=== PATIENT | female | born 1970 | race Hispanic/Latino ===

== ENCOUNTER 2020-04-05 17:12 | Inpatient (IN) | payer SELFPAY ==
[~2020-04-05] VITALS: Ht 167.6 cm; Wt 70.8 kg
[2020-04-05 18:03] LABS: BASOPHILS # (AUTO) 0.1 (0.0-0.1); BASOPHILS % 0.6 % (0.0-1.0); EOSINOPHILS # (AUTO) 0.2 (0.0-0.4); HEMATOCRIT 36.5 % (34.2-44.1); HEMOGLOBIN 12.2 g/dL (12.0-16.0); LYMPHOCYTES # (AUTO) 2.3 (1.0-3.2); LYMPHOCYTES % 29.6 % (18.0-39.1); MEAN CORPUSCULAR HEMOGLOBIN 28.2 pg (28-32); MEAN CORPUSCULAR HGB CONC 33.4 g/dL (31-35); MEAN CORPUSCULAR VOLUME 84.3 fL (81-99); MONOCYTES % 12.3 % (4.4-11.3); NEUTROPHILS # (AUTO) 4.4 (2.1-6.9); NEUTROPHILS % 55.2 % (38.7-80.0); PLATELET COUNT 203 x10e3/uL (140-360); RED BLOOD COUNT 4.33 x10e6/uL (3.6-5.1); RED CELL DISTRIBUTION WIDTH 16.8 % (11.7-14.4)
[2020-04-05 18:09] LABS: INR 1.31; PROTHROMBIN TIME 16.9 seconds (11.9-14.5)
[2020-04-05 18:10] LABS: PARTIAL THROMBOPLASTIN TIME 36.8 seconds (23.8-35.5)
[2020-04-05] MEDS ORDERED: NITROGLYCERIN 2% OINT 1 GM PKT TOP ONE (18:15)
[2020-04-05 18:18] LABS: ALANINE AMINOTRANSFERASE 21 IU/L (0-55); ALBUMIN 3.1 g/dL (3.5-5.0); ALBUMIN/GLOBULIN RATIO 0.7 (0.8-2.0); ALKALINE PHOSPHATASE 232 IU/L (40-150); ANION GAP 13.9 mmol/L (8-16); BLOOD UREA NITROGEN 9 mg/dL (7-26); BUN/CREATININE RATIO 16 (6-25); CALCIUM 9.2 mg/dL (8.4-10.2); CARBON DIOXIDE 22 mmol/L (22-29); CHLORIDE 107 mmol/L (98-107); CREATINE KINASE 44 IU/L (29-168); CREATININE, SERUM 0.58 mg/dL (0.57-1.11); EST GLOMERULAR FILTRATION RATE > 60 ML/MIN (60-); GLUCOSE 90 mg/dL (74-118); MAGNESIUM 1.7 MG/DL (1.3-2.1); POTASSIUM 3.9 mmol/L (3.5-5.1); SODIUM 139 mmol/L (136-145)
--- NOTE | 2020-04-05 18:53 | Diagnostic Imaging Report ---
EXAMINATION: CHEST SINGLE (PORTABLE) INDICATION: Shortness of breath. CHF. COMPARISON: None FINDINGS: TUBES and LINES: None. LUNGS: Lungs are mildly hyperinflated. Bilateral pulmonary venous congestion. There is perihilar interstitial opacities, consistent with interstitial edema. PLEURA: No pleural effusion or pneumothorax. HEART AND MEDIASTINUM: Cardiac size is moderately enlarged. BONES AND SOFT TISSUES: No acute osseous lesion. Soft tissues are unremarkable. UPPER ABDOMEN: No free air under the diaphragm. IMPRESSION: Decompensated CHF. Bilateral pulmonary venous congestion and interstitial edema. Signed by: Dr. Ayad Zayas M.D. on 04/05/2020 6:50 PM
[2020-04-05] MEDS ORDERED: METRONIDAZOLE 500MG/NS 100ML 100 ML IV ONE (19:15)
[2020-04-05] MEDS ORDERED: PIPER-TAZ 3.375 GM 50 ML IV ONE (19:15)
--- NOTE | 2020-04-05 19:18 | Emergency Department Note ---
History of Present Illnes History of Present Illness Chief Complaint: Chest Pain History of Present Illness This is a 49 year old female arrived to the ED with complaints of shortness of breath for several months now worsening with bilateral leg edema that is spreading up to her thighs. Chief Complaint Comment Patient in from Dr. Leung office with reports of difficulty breathing that started about 8 months ago. Patient reports that she finally made an appointment with Dr. Leung and saw him today where they did an EKG that showed a rapid heart rate and she was told to come to the ER for a chest xray. Patient denies chest pain. Historian: Patient Arrival Mode: Car Onset (how long ago): week(s) Severity: mild, moderate Onset quality: gradual Duration (how long): month(s) Timing of current episode: constant Progression: worsening Chronicity: new Past Medical/Family History Physician Review I have reviewed the patient's past medical and family history. Any updates have been documented here. Past Medical History Recent Fever: No Clinical Suspicion of Infectio: No New/Unexplained Change in Ment: No Past Medical History: Hypertension, CHF, Anxiety Past Surgical History: None Social History Smoking Cessation: Never Smoker Counseling Performed: No Alcohol Use: None Any Illegal Drug Use: No Physically hurt or threatened: No Other Any Pre-Existing Lines (PICC,: No Review of Systems Review of Systems Constitutional: Reports no symptoms EENTM: Reports no symptoms Cardiovascular: Reports no symptoms Respiratory: Reports as per HPI, Reports dyspnea, Reports dyspnea on exertion; Denies cough Gastrointestinal: Reports no symptoms Genitourinary: Reports no symptoms Musculoskeletal: Reports no symptoms Integumentary: Reports no symptoms Neurological: Reports no symptoms Psychological: Reports no symptoms Endocrine: Reports no symptoms Hematological/Lymphatic: Reports no symptoms Physical Exam Related Data Allergies: Coded Allergies: No Known Allergies (Unverified , 04/05/20) Triage Vital Signs Vital Signs Date Time Temp Pulse Resp B/P (MAP) Pulse Ox O2 Delivery O2 Flow Rate FiO2 04/05/20 17:28 98.3 124 18 182/99 100 Room Air Physical Exam CONSTITUTIONAL HENT EYES NECK PULMONARY CARDIOVASCULAR GASTROINTESTINAL GENITOURINARY SKIN MUSCULOSKELETAL NEUROLOGICAL PSYCHOLOGICAL Results Laboratory Result Diagram: 04/05/20 1739 04/05/20 1739 Laboratory Laboratory Tests Test 04/05/20 17:57 04/05/20 17:39 White Blood Count 7.90 x10e3/uL (4.8-10.8) Red Blood Count 4.33 x10e6/uL (3.6-5.1) Hemoglobin 12.2 g/dL (12.0-16.0) Hematocrit 36.5 % (34.2-44.1) Mean Corpuscular Volume 84.3 fL (81-99) Mean Corpuscular Hemoglobin 28.2 pg (28-32) Mean Corpuscular Hemoglobin Concent 33.4 g/dL (31-35) Red Cell Distribution Width 16.8 % (11.7-14.4) Platelet Count 203 x10e3/uL (140-360) Neutrophils (%) (Auto) 55.2 % (38.7-80.0) Lymphocytes (%) (Auto) 29.6 % (18.0-39.1) Monocytes (%) (Auto) 12.3 % (4.4-11.3) Eosinophils (%) (Auto) 2.0 % (0.0-6.0) Basophils (%) (Auto) 0.6 % (0.0-1.0) Neutrophils # (Auto) 4.4 (2.1-6.9) Lymphocytes # (Auto) 2.3 (1.0-3.2) Monocytes # (Auto) 1.0 (0.2-0.8) Eosinophils # (Auto) 0.2 (0.0-0.4) Basophils # (Auto) 0.1 (0.0-0.1) Absolute Immature Granulocyte (auto 0.02 x10e3/uL (0-0.1) Prothrombin Time 16.9 seconds (11.9-14.5) Prothromb Time International Ratio 1.31 Activated Partial Thromboplast Time 36.8 seconds (23.8-35.5) D-Dimer Quantitative (PE/DVT) 1.61 ug/mLFEU (0.00-0.45) Sodium Level 139 mmol/L (136-145) Potassium Level 3.9 mmol/L (3.5-5.1) Chloride Level 107 mmol/L (98-107) Carbon Dioxide Level 22 mmol/L (22-29) Anion Gap 13.9 mmol/L (8-16) Blood Urea Nitrogen 9 mg/dL (7-26) Creatinine 0.58 mg/dL (0.57-1.11) Estimat Glomerular Filtration Rate > 60 ML/MIN (60-) BUN/Creatinine Ratio 16 (6-25) Glucose Level 90 mg/dL (74-118) Calcium Level 9.2 mg/dL (8.4-10.2) Magnesium Level 1.7 MG/DL (1.3-2.1) Total Bilirubin 3.3 mg/dL (0.2-1.2) Aspartate Amino Transf (AST/SGOT) 43 IU/L (5-34) Alanine Aminotransferase (ALT/SGPT) 21 IU/L (0-55) Alkaline Phosphatase 232 IU/L (40-150) Creatine Kinase 44 IU/L (29-168) Creatine Kinase MB 2.30 ng/mL (0-5.0) Troponin I 0.035 ng/mL (0-0.300) B-Type Natriuretic Peptide 1255.1 pg/mL (0-100) Total Protein 7.7 g/dL (6.5-8.1) Albumin 3.1 g/dL (3.5-5.0) Globulin 4.6 g/dL (2.3-3.5) Albumin/Globulin Ratio 0.7 (0.8-2.0) Lab results reviewed: Yes Imaging Imaging results reviewed: Yes Impressions IMPRESSION: 1. There is tissue edema suggestive of decompensated CHF. 2. Moderate cardiomegaly and small pericardial effusion. 3. Small right pleural effusion. 4. Mediastinal lymphadenopathy, likely reactive. Signed by: Dr. Ayad Zayas M.D. on 04/05/2020 8:50 PM Critical Care Time Critical care time exclusive o: separately billable procedures Critcal care necessary due to: respiratory failure Critcal care time spent by me: blood dram for specimens, discussion w primary provider, interpret cardiac output measures, evaluation patient response to tx, examination of patient, obtaining hx from patient/surrogate, order/review laboratory studies, order/review radiographic studies, pulse oximetry, re- evaluation of patient condition Assessment & Plan Medical Decision Making MDM Concerns for impending Severe Sepsis @ 1900 noted, given elevated bilirubin. Blood cultures and lactic acid obtained. Lactic acid unremarkable. Patient empirically given [address] abdomen and pelvis unremarkable for any acute intra-abdominal surgical infectious process. 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 BNP:>1255 CXR: IMPRESSION: Decompensated CHF. Bilateral pulmonary venous congestion and interstitial edema. Based on history, exam and findings, presentation most consistent with acute on chronic heart failure. Low suspicion for PNA, ACS, tamponade, aortic dissection. Interventions: Oxygen, Diuresis Reassessment: Symptoms improved in ED with diuresis Disposition (Stable but not significantly improved): Admit to medicine for further monitoring and for improvement of medication regimen to control symptoms. Clinical Impression and Disposition Plan My clinical impression includes: Acute decompensated CHF No diagnosis found. And plan is admit for: -Further monitoring and evaluation is medically necessary -Failure to respond to outpatient treatment -Changes in pt's condition require medical attention -High risk for adverse event impacting life/organs/systems -Impossible to complete diagnostic studies as an outpatient -Signs/symptoms could lead to deterioration of patient -Treatment plan will require frequent clinical modifications -Treatment requires inpatient setting All clinical impressions and diagnoses provided are preliminary ED determinations subject to the inherent limitations of an emergent non-scheduled evaluation and possible lack of comprehensive previous records. All patient care including history taking, review of systems, physical exam, nursing notes review, medical decision making, clinical course management in the emergency department, clinical impression, disposition and plan formulation was performed on the date of service. This note was created using a voice-recognition transcribing system. Incorrect words or phrases may have been missed during proofreading. Please interpret accordingly. Assessment & Plan Final Impression: (1) CHF (congestive heart failure) Depart Disposition: ADMITTED Last Vital Signs Date Time Temp Pulse Resp B/P (MAP) Pulse Ox O2 Delivery O2 Flow Rate FiO2 04/05/20 18:29 184/116 04/05/20 18:03 98.1 122 18 97 Room Air Medications in the ED Nitroglycerin 1 gm ONCE ONCE TOP Last administered on 04/05/20at 18:29; Admin Dose 1 GM; Start 04/05/20 at 18:15; Stop 04/05/20 at 18:16; Status DC Piperacillin Sod/ Tazobactam Sod 50 ml @ 50 mls/hr NOW ONCE IV ; Start 04/05/20 at 19:15; Stop 04/05/20 at 20:14 Metronidazole/ Sodium Chloride 100 ml @ 100 mls/hr NOW ONCE IV ; Start 04/05/20 at 19:15; Stop 04/05/20 at 20:14 ANKITA MEDNIA, Apr 05, 2020 19:18
[2020-04-05] MEDS ORDERED: IOPAMIDOL 370 MG/ML 200 ML INFUS..BTL INJ ONE (19:34)
[2020-04-05] MEDS ORDERED: SODIUM CHLORIDE 0.9% 50ML 50 ML ONE (19:34)
[2020-04-05 19:36] LABS: CLARITY,URINE SL CLOUDY (CLEAR); COLOR,URINE YELLOW (YELLOW)
[2020-04-05 19:37] LABS: AMPHETAMINES SCREEN,URINE NEGATIVE (NEGATIVE); BENZODIAZEPINES SCREEN,URINE NEGATIVE (NEGATIVE); BILIRUBIN,URINE NEGATIVE (NEGATIVE); KETONES,URINE NEGATIVE (NEGATIVE); LEUKOCYTE ESTERASE ,URINE NEGATIVE (NEGATIVE); NITRITE,URINE NEGATIVE (NEGATIVE); PHENCYCLIDINE SCREEN,URINE NEGATIVE (NEGATIVE); PROTEIN,URINE DIPSTICK NEGATIVE (NEGATIVE); URINE UROBILINOGEN 0.2 mg/dL (0.2 - 1)
[2020-04-05 19:47] LABS: RBC,URINE 0-5 /HPF (0-5)
[2020-04-05 19:48] LABS: BACTERIA,URINE FEW /HPF; EPITHELIAL CELLS,URINE FEW /LPF
[2020-04-05] MEDS ORDERED: FUROSEMIDE INJ 10 MG/ML 4 ML VIAL IV ONE (20:00)
--- OUTSIDE RECORDS SUMMARY | 2020-04-05 20:47 | XMS REPORT | Continuity of Care Document ---
Author Author [facility] t Organization [facility] Address [address] [place] [phone] Phone Unavailable Care Team Providers Care Glove Parts Inspector Name Role Phone Christine BOWDEN Attphys Unavailable Problems This patient has no known problems. Allergies, Adverse Reactions, Alerts This patient has no known allergies or adverse reactions. Medications This patient has no known medications. Procedures This patient has no known procedures. Results Test Description Test Time Test Comments Results Result Comments Source CHEST SINGLE (PORTABLE) 2020-04-05 18:49:00 [facility]: DEBRA MOSQUEDA : 1970 Sex: F [facility] [address] [place], [place] [address] Patient Name: DEBRA MOSQUEDA MR #: [id number] : 1970 Age/Sex: 49/F Req #: [id number] [facility] Physician: Ordered by: DELFINO BOWDEN MD Report #: [id number] Location: ER Room/Bed: Procedure: [id number] DX/CHEST SINGLE (PORTABLE) Exam Date: 04/05/20 Exam Time: 1814 REPORT STATUS: Signed EXAMINATION: CHEST SINGLE (PORTABLE) INDICATION: Shortness of breath. CHF. COMPARISON: None FINDINGS: TUBES and LINES: None. LUNGS: Lungs are mildly hyperinflated. Bilateral pulmonary venous congestion. There is perihilar interstitial opacities, consistent with interstitial edema. PLEURA: No pleural effusion or pneumothorax. HEART AND MEDIASTINUM: Cardiac size is moderately enlarged. BONES AND SOFT TISSUES: No acute osseous lesion. Soft tissues are unremarkable. UPPER ABDOMEN: No free air under the diaphragm. IMPRESSION: Decompensated CHF. Bilateral pulmonary venous congestion and interstitial edema. Signed by: Dr. Ayad Landrum M.D. on 04/05/2020 6:50 PM Dictated By: JHONATAN LANDRUM MD, MD 49 Transcribed By: DEAN on 04/05/201849 COPY TO: DELFINO BOWDEN MD
--- NOTE | 2020-04-05 20:54 | Diagnostic Imaging Report ---
EXAM: CT Chest, Abdomen and Pelvis WITH contrast INDICATION: Chest pain. Shortness of breath. COMPARISON: None. TECHNIQUE: Chest, abdomen and pelvis were scanned utilizing a multidetector helical scanner from the lung apex to the pubic symphysis before and after administration of IV contrast. Coronal and sagittal reformations were obtained. Chest performed with pulmonary embolism protocol. Routine protocol was performed. Scan was performed when during portal venous phase. IV CONTRAST: 100 cc Isovue-300 ORAL CONTRAST: Water RADIATION DOSE: Total DLP: 958.66 mGy*cm Estimated effective dose: (DLP x 0.015 x size factor) mSv COMPLICATIONS: None FINDINGS: LINES and TUBES: None. LUNGS AND AIRWAYS: Bilateral diffuse interstitial edema. PLEURA: Small right pleural effusion. HEART AND MEDIASTINUM: The thyroid gland is normal. Nodular low-attenuation throughout the anterior mediastinum suggestive of multiple small lymph nodes, possibly reactive. Mild thymic hyperplasia cannot be excluded. The heart is moderately enlarged. There is I small pericardial effusion. Mildly prominent bilateral axillary lymph nodes are nonspecific, possibly reactive. HEPATOBILIARY: Diffuse low-attenuation of the hepatic parenchyma consistent with steatosis. No focal hepatic lesions. No biliary ductal dilation. GALLBLADDER: No radio-opaque stones or sludge. No wall thickening. SPLEEN: No splenomegaly. PANCREAS: No focal masses or ductal dilatation. ADRENALS: No adrenal nodules KIDNEYS/URETERS: Kidneys enhance symmetrically. No hydronephrosis. No cystic or solid mass lesions. No stones. GI TRACT: No abnormal distention, wall thickening, or evidence of bowel obstruction. Appendix is not well visualized, however, no evidence of appendicitis. PELVIC ORGANS/BLADDER: An IUD is noted. LYMPH NODES: No lymphadenopathy. VESSELS: Unremarkable. PERITONEUM / RETROPERITONEUM: No free air or fluid. BONES: There are degenerative changes in the lumbar spine. SOFT TISSUES: Unremarkable. IMPRESSION: 1. There is tissue edema suggestive of decompensated CHF. 2. Moderate cardiomegaly and small pericardial effusion. 3. Small right pleural effusion. 4. Mediastinal lymphadenopathy, likely reactive. Signed by: Dr. Ayad Zayas M.D. on 04/05/2020 8:50 PM
[2020-04-05] MEDS ORDERED: SODIUM CHLORIDE FLUSH 10 ML SYR INJ PRN (21:30)
--- OUTSIDE RECORDS SUMMARY | 2020-04-05 21:41 | XMS REPORT | Continuity of Care Document ---
Author Author [facility] t Organization [facility] Address [address] [place] [address] [address] [place] [phone] Phone Unavailable Care Team Providers Care Sr. Pricing Analyst Name Role Phone Yovany MEDINA Unavailable Problems This patient has no known problems. Allergies, Adverse Reactions, Alerts This patient has no known allergies or adverse reactions. Medications This patient has no known medications. Procedures This patient has no known procedures. Results Test Description Test Time Test Comments Results Result Comments Source CT CHEST W 2020-04-05 20:03:00 [facility] CENTER[facility]: DEBRA MOSQUEDA : 1970 Sex: F [facility] [address] [place], [place] [address] Patient Name: DEBRA MOSQUEDA MR #: [id number] : 1970 Age/Sex: 49/F Req #: [id number] [facility] Physician: Ordered by: ANKITA MEDINA DO Report #: [id number] Location: ER Room/Bed: Procedure: [id number] CT/CT CHEST W Exam Date: 04/05/20 Exam Time: 1914 REPORT STATUS: Signed EXAM: CT Chest, Abdomen and Pelvis WITH contrast INDICATION: Chest pain. Shortness of breath. COMPARISON: None. TECHNIQUE: Chest, abdomen and pelvis were scanned utilizing a multidetector helical scanner from the lung apex to the pubic symphysis before and after administration of IV contrast. Coronal and sagittal reformations were obtained. Chest performed with pulmonary embolism protocol. Routine protocol was performed. Scan was performed when during portal venous phase. IV CONTRAST: 100 cc Isovue-300 ORAL CONTRAST: Water RADIATION DOSE: Total DLP: 958.66 mGy*cm Estimated effective dose : (DLP x 0.015 x size factor) mSv COMPLICATIONS: None FINDINGS: LINES and TUBES: None. LUNGS AND AIRWAYS: Bilateral diffuse interstitial edema. PLEURA: Small right pleural effusion. HEART AND MEDIASTINUM: The thyroid gland is normal. Nodular low-attenuation throughout the anterior mediastinum suggestive of multiple small lymph nodes, possibly reactive. Mild thymic hyperplasia cannot be excluded. The heart is moderately enlarged. There is I small pericardial effusion. Mildly prominent bilateral axillary lymph nodes are nonspecific, possibly reactive. HEPATOBILIARY: Diffuse low-attenuation of the hepatic parenchyma consistent with steatosis. No focal hepatic lesions. No biliary ductal dilation. GALLBLADDER: No radio-opaque stones or sludge. No wall thickening. SPLEEN: No splenomegaly. PANCREAS: No focal masses or ductal dilatation. ADRENALS: No adrenal nodules KIDNEYS/URETERS: Kidneys enhance symmetrically. No hydronephrosis. No cystic or solid mass lesions. No stones. GI TRACT: No abnormal distention, wall thickening, or evidence of bowel obstruction. Appendix is not well visualized, however, no evidence of appendicitis. PELVIC ORGANS/BLADDER: An IUD is noted. LYMPH NODES: No lymphadenopathy. VESSELS: Unremarkable. PERITONEUM / RETROPERITONEUM: No free air or fluid. BONES: There are degenerative changes in the lumbar spine. SOFT TISSUES: Unremarkable. IMPRESSION: 1. There is tissue edema suggestive of decompensated CHF. 2. Moderate cardiomegaly and small pericardial effusion. 3. Small right pleural effusion. 4. Mediastinal lymphadenopathy, likely reactive. Signed by: Dr. Ayad Landrum M.D. on 04/05/2020 8:50 PM Dictated By: JHONATAN LANDRUM MD, MD 49 Transcribed By: DEAN on 04/05/202049 COPY TO: ANKITA MEDINA DO CT ABDOMEN/PELVIS W 2020-04-05 20:03:00 [facility] 1970 Sex: F [place] [id number] Patient Name: DEBRA MOSQUEDA MR #: [id number] : 1970 Age/Sex: 49/F Req #: [id number] Adm Physician: Ordered by: ANKITA MEDINA DO Report #: [id number] Location: ER Room/Bed: Procedure: [id number] CT/CT ABDOMEN/PELVIS W Exam Date: 04/05/20 Exam Time: 1914 REPORT STATUS: Signed EXAM: CT Chest, Abdomen and Pelvis WITH contrast INDICATION: Chest pain. Shortness of breath. COMPARISON: None. TECHNIQUE: Chest, abdomen and pelvis were scanned utilizing a multidetector helical scanner from the lung apex to the pubic symphysis before and after administration of IV contrast. Coronal and sagittal reformations were obtained. Chest performed with pulmonary embolism protocol. Routine protocol was performed. Scan was performed when during portal venous phase. IV CONTRAST: 100 cc Isovue-300 ORAL CONTRAST: Water RADIATION DOSE: Total DLP: 958.66 mGy*cm Estimated effective dose: (DLP x 0.015 x size factor) mSv COMPLICATIONS: None FINDINGS: LINES and TUBES: None. LUNGS AND AIRWAYS: Bilateral diffuse interstitial edema. PLEURA: Small right pleural effusion. HEART AND MEDIASTINUM: The thyroid gland is normal. Nodular low-attenuation throughout the anterior mediastinum suggestive of multiple small lymph nodes, possibly reactive. Mild thymic hyperplasia cannot be excluded. The heart is moderately enlarged. There is I small pericardial effusion. Mildly prominent bilateral axillary lymph nodes are nonspecific, possibly reactive. HEPATOBILIARY: Diffuse low-attenuation of the hepatic parenchyma consistent with steatosis. No focal hepatic lesions. No biliary ductal dilation. GALLBLADDER: No radio-opaque stones or sludge. No wall thickening. SPLEEN: No splenomegaly. PANCREAS: No focal masses or ductal dilatation. ADRENALS: No adrenal nodules KIDNEYS/URETERS: Kidneys enhance symmet rically. No hydronephrosis. No cystic or solid mass lesions. No stones. GI TRACT: No abnormal distention, wall thickening, or evidence of bowel obstruction. Appendix is not well visualized, however, no evidence of appendicitis. PELVIC ORGANS/BLADDER: An IUD is noted. LYMPH NODES: No lymphadenopathy. VESSELS: Unremarkable. PERITONEUM / RETROPERITONEUM: No free air or fluid. BONES: There are degenerative changes in the lumbar spine. SOFT TISSUES: Unremarkable. IMPRESSION: 1. There is tissue edema suggestive of decompensated CHF. 2. Moderate cardiomegaly and small pericardial effusion. 3. Small right pleural effusion. 4. Mediastinal lymphadenopathy, likely reactive. Signed by: Dr. Ayad Landrum M.D. on 04/05/2020 8:50 PM Dictated By: JHONATAN LANDRUM MD, MD 49 Transcribed By: DEAN on 04/05/202049 COPY TO: ANKITA MEDINA, CHEST SINGLE (PORTABLE) 2020-04-05 18:49:00 [facility] CENTERName: DEBRA MOSQUEDA : 1970 Sex: F [place] [address] Patient Name: DEBRA MOSQUEDA MR #: [id number] : 1970 Age/Sex: 49/F Req #: [id number] Adm Physician: Ordered by: DELFINO BOWDEN MD Report #: [id number] Location: ER Room/Bed: Procedure: [id number] DX/CHEST SINGLE (PORTABLE) Exam Date: 04/05/20 Exam Time: 1815 REPORT STATUS: Signed EXAMINATION: CHEST SINGLE (PORTABLE) [...]
[2020-04-05 22:10] VITALS: BP 142/85
--- NOTE | 2020-04-05 22:10 | NUR ---
Pt arrived to unit from ER via wheelchair with at side. Pt was taken to room #113. Pt is awake, alert, and oriented. No distress noted. Pt denies pain or discomfort. Vitals are stable. Oriented pt to room and use of call light. Discussed education folder with pt and informed her of teaching channels on the TV provided. Pt requested a sandwich upon admission. Pt appears comfortable. Observed pt while she ambulated to bathroom during admission. Pt is independent and steady on her feet without assistance. Call light within reach. Instructed pt to call when assistance is needed/necessary. Pt verbalized understanding. Denies further questions or concerns at this time.
[2020-04-05] MEDS ORDERED: CITALOPRAM HBR20 MG PO (23:14)
[2020-04-05] MEDS ORDERED: DIOVAN80 MG PO (23:14)
[2020-04-06] VITALS (8 sets, daily range): BP systolic 127–150; BP diastolic 65–85
[2020-04-06 06:02] LABS: CREATINE KINASE MB 1.6 ng/mL (0-5.0)
--- NOTE | 2020-04-06 07:00 | NUR ---
BEDSIDE SHIFT REPORT RECEIVED PT IN STABLE CONDITION, DENIES PAIN AT THIS TIME, R AC 20G NO SS OF INFILTRATION NOTED, NO OTHER CO VOCIED CALL LIGHT IN REACH WILL CONTINUE TO MONITOR
--- NOTE | 2020-04-06 08:32 | Diagnostic Imaging Report ---
Chest, 1 view, 04/06/2020. History: Chest pain, CHF. Comparison: 04/05/2020. Findings: The cardiomediastinal silhouette and pulmonary vasculature are mildly prominent with mild interstitial prominence. There is no focal consolidation or pleural effusion. There are no acute osseous or soft tissue abnormalities. Impression: Mild CHF with interstitial edema, slightly decreased. Signed by: Lee Sifuentes on 04/06/2020 8:29 AM
[2020-04-06] MEDS ORDERED: ACETAMINOPHEN 325 MG TAB PO PRN (09:00)
[2020-04-06] MEDS: FUROSEMIDE INJ 10 MG/ML 4 ML VIAL IV SCH ×2 (09:06→17:22)
[2020-04-06 14:08] LABS: CREATINE KINASE MB 1.6 ng/mL (0-5.0)
--- NOTE | 2020-04-06 16:18 | Consultation ---
DATE OF CONSULTATION: Cardiology Consultation REASON FOR CONSULTATION: Tachycardia, heart failure. HISTORY OF PRESENT ILLNESS: This is a 49-year-old woman with a history of hypertension, who presented to my outpatient clinic yesterday with symptoms of lower extremity swelling, and tachycardia. The patient also reports shortness of breath and atypical chest discomfort. The patient was further admitted for potential heart failure. REVIEW OF SYSTEMS: A 14-point review of system was conducted and is negative except as stated above in the HPI. PAST MEDICAL HISTORY: As stated above in the HPI. PAST SURGICAL HISTORY: None recent. PAST FAMILY HISTORY: Noncontributory to current illness. ALLERGIES: NO KNOWN DRUG ALLERGIES. MEDICATIONS: See medication reconciliation form. PHYSICAL EXAMINATION: VITAL SIGNS: Temperature is 98.3, heart rate is 94, respirations 18, blood pressure is 150/85, ox saturation is 96% on room air. GENERAL: A well appearing, well built, no apparent distress. Alert and oriented x3. HEAD: Normocephalic and atraumatic. EYES: The extraocular muscles are intact. Conjunctivae clear. NECK: No JVD. No bruits. CARDIOVASCULAR: Tachycardia, regular rhythm. No murmurs. LUNGS: Clear to auscultation. ABDOMEN: Soft, nontender, nondistended. EXTREMITIES: Trace edema. VASCULAR: 2+ pulses. SKIN: Warm, dry, and intact. NEUROLOGIC: No focal deficits noted. Cranial nerves grossly intact. PSYCHIATRIC: Normal mood and affect. LABORATORY DATA: Reviewed. Creatinine 0.58, AST is 43, alkaline phosphatase is 232, albumin is 3.1. Troponin negative x2. BNP is 1683. CT of the chest showed no evidence of pulmonary embolism, moderate cardiomegaly, small pericardial effusion. Chest x-ray shows bilateral pulmonary venous congestion and interstitial edema. IMPRESSION: 1. Acute systolic congestive heart failure. 2. Hypertension. 3. Tachycardia. 4. Anxiety. 5. Elevated liver function tests. RECOMMENDATIONS: Check a 2D echocardiogram. Continue intravenous Lasix. We will start low-dose metoprolol. Resume valsartan. Further recommendations to follow. DO ELIAN Vizcarra/SOLO /[id number]
[2020-04-06] MEDS: METOPROLOL TARTRATE 25 MG TAB PO SCH (18:08)
--- NOTE | 2020-04-06 18:45 | NUR ---
History&Physical Chief Complaint - shortness of breath, leg swelling History of Present Illness Ms Whitlock is a 49 yo F with PMH of HTN who is admitted for acute heart failure. Patient was seen in Dr José Miguel Leung' clinic where he was concerned for new onset HF and sent her to ED. This was the first time she was seen in his clinic. She states she has been having symptoms of shortness of breath and lower extremity edema for several months and has been gradually worsening. She also complains of atypical chest discomfort. Never had heart cath, never had WI. CXR in ED with bilateral pulmonary congestion and interstitial edema with enlarged cardiac silhouette. Labwork revealed BNP 1683. Started on lasix and admitted for further work-up. Home Medications - see med reconciliation Review of Systems - positive sxms bolded General: No fever, chills, or fatigue HEENT: Denies visual changes, hearing loss, congestion, rhinorrhea, or bleeding Respiratory: No SOB, cough, or hemoptysis Cardiovascular: No chest pain, palpitations, BENSON, orthopnea, PND, leg edema, or claudication Gastrointestinal: No nausea, vomiting, diarrhea, constipation, or abdominal pain G/U: Denies dysuria, hematuria, incontinence, or discharge Musculoskeletal: No myalgias or arthralgias Neurological: No syncope, seizures, headaches, changes in sensation, or weakness Hematology: No bruising, bleeding, or lymphadenopathy Endocrine: No heat or cold intolerance, hair loss, or weight changes Skin: No rashes, sores, itching, bruising Psychiatric: Denies depression or elevated mood, or anxiety Past Medical History see HPI Past Surgical History None Family History Mother with HTN Social History Does not drink, does not smoke, does not use drugs Allergies NKDA Physical Exam Vitals: Temp: 98.3P: 98BP: 131/65RR: 18SpO2: 98% General Appearance: The patient is alert, oriented and in no acute distress. Appears euvolemic. Skin: Warm and hydrated without any rash. HEENT: Head is normocephalic, atraumatic. Nontender sinuses. Pupils are equal and reactive. The nares are patent. Oropharynx is moist and clear without lesions. Neck: Supple without lymphadenopathy. No JVD. Thyroid NV/EELER Heart / Cardiovascular: tachycardic with regular rhythm. Normal S1 and S2 without S3/S4. No murmurs, rubs or gallops. Peripheral pulses symmetric +2. Respiratory / Chest: No crackles or wheezes are heard. Symmetric breath sounds. Preserved chest expansion. Abdomen: Soft, nontender, nondistended with good bowel sounds heard. No clinical organomegaly. Renal: There is no costovertebral angle tenderness. Extremities: Without cyanosis, clubbing. +trace edema Preserved ROM. Neurological: Gross nonfocal. Patient oriented x 3. Cranial nerves II - XII Grossly intact. DTRs +2. MS: 5/5 globally. Assessment/Plan #Acute systolic congestive heart failure - appears to have reduced EF on my evaluation of echo, pending formal read; BNP and clinical findings = CHF - TSH very low, possible cause of her HF is thyrotoxicosis - Dr Leung consulted, appreciate assistance - plan for [facility] tomorrow - continue valsartan, lasix, aspirin, statin - start low dose metoprolol per Dr Leung #Thyrotoxicosis - new diagnosis, TSH 0.001 - ordered FT4, total T3, TPO, TSI, and thyroid U/S - consulted Dr Milligan, appreciate assistance - will likely need further w/u outpatient pending the above studies I have spent 70 minutes [id number] time with patient, reviewing clinical data, and formulating plan of treatment. Leonel Hamm MD Internal Medicine
--- NOTE | 2020-04-06 19:30 | NUR ---
Received bedsidse shift report from off-going nurse. Pt in restroom. Observed pt ambulate to sit on bed. Pt denies pain or discomfort at this time. Call light within reach. Instructed pt to call for assistance when needed. Pt verbalized understanding and denies further questions or concerns at this time.
[2020-04-06] MEDS ORDERED: ATORVASTATIN 40 MG TAB PO SCH (21:00)
[2020-04-07] VITALS: BP 127/80
[2020-04-07 04:00] VITALS: BP 127/77
[2020-04-07] MEDS: METOPROLOL TARTRATE 25 MG TAB PO SCH (05:12)
[2020-04-07 06:00] LABS: BASOPHILS # (AUTO) 0.1 (0.0-0.1); BASOPHILS % 0.6 % (0.0-1.0); EOSINOPHILS # (AUTO) 0.4 (0.0-0.4); EOSINOPHILS % 5.2 % (0.0-6.0); HEMATOCRIT 39.1 % (34.2-44.1); HEMOGLOBIN 12.8 g/dL (12.0-16.0); LYMPHOCYTES # (AUTO) 2.5 (1.0-3.2); LYMPHOCYTES % 32.2 % (18.0-39.1); MEAN CORPUSCULAR HEMOGLOBIN 28.1 pg (28-32); MEAN CORPUSCULAR HGB CONC 32.7 g/dL (31-35); MEAN CORPUSCULAR VOLUME 85.7 fL (81-99); MONOCYTES % 12.5 % (4.4-11.3); NEUTROPHILS # (AUTO) 3.8 (2.1-6.9); NEUTROPHILS % 49.1 % (38.7-80.0); PLATELET COUNT 233 x10e3/uL (140-360); RED BLOOD COUNT 4.56 x10e6/uL (3.6-5.1); RED CELL DISTRIBUTION WIDTH 16.9 % (11.7-14.4)
[2020-04-07 06:11] LABS: CALCIUM IONIZED 1.2 mmol/L (1.09-1.30)
[2020-04-07 06:23] LABS: ALANINE AMINOTRANSFERASE 21 IU/L (0-55); ALBUMIN 2.9 g/dL (3.5-5.0); ALBUMIN/GLOBULIN RATIO 0.6 (0.8-2.0); ALKALINE PHOSPHATASE 249 IU/L (40-150); ANION GAP 11.9 mmol/L (8-16); BLOOD UREA NITROGEN 12 mg/dL (7-26); BUN/CREATININE RATIO 21 (6-25); CALCIUM 8.8 mg/dL (8.4-10.2); CARBON DIOXIDE 30 mmol/L (22-29); CHLORIDE 103 mmol/L (98-107); CREATININE, SERUM 0.58 mg/dL (0.57-1.11); EST GLOMERULAR FILTRATION RATE > 60 ML/MIN (60-); GLUCOSE 105 mg/dL (74-118); MAGNESIUM 1.8 MG/DL (1.3-2.1); PHOSPHORUS 3.3 MG/DL (2.3-4.7); POTASSIUM 3.9 mmol/L (3.5-5.1); SODIUM 141 mmol/L (136-145)
[2020-04-07 06:40] LABS: CHOL/HDL RATIO 4.4 (3.0-3.6)
--- NOTE | 2020-04-07 07:00 | NUR ---
receiced report from off going nurse. pt lying in bed and no apparent distress.
[2020-04-07 08:00] VITALS: BP 143/77
[2020-04-07 08:18] VITALS: BP 143/77
[2020-04-07 08:41] VITALS: BP 143/77
[2020-04-07] MEDS: FUROSEMIDE INJ 10 MG/ML 4 ML VIAL IV SCH (08:56)
[2020-04-07] MEDS ORDERED: ASPIRIN 81 MG CHEW TAB PO SCH (09:00)
[2020-04-07] MEDS ORDERED: CITALOPRAM HYDROBROMIDE 20 MG TAB PO SCH (09:00)
[2020-04-07] MEDS ORDERED: VALSARTAN 80 MG TAB PO SCH (09:00)
[2020-04-07] MEDS ORDERED: Atorvastatin PO (10:11)
[2020-04-07] MEDS ORDERED: ASPIRIN CHEW81 MG PO (10:11)
[2020-04-07] MEDS ORDERED: DIOVAN80 MG PO (11:21)
[2020-04-07] MEDS ORDERED: METOPROLOL SUCC25 MG PO (11:22)
[2020-04-07] MEDS ORDERED: LASIX40 MG PO (11:23)
[2020-04-07] MEDS ORDERED: ATORVASTATIN CA20 MG PO (11:23)
--- NOTE | 2020-04-07 11:50 | NUR ---
Pt off of the floor at 1150. Pt walked with [employer] and no apparent distress. Pt refused US and to wait for consult with Dr. Jacob. Dr. Jacob was advised of pt leaving before being seen.
--- NOTE | 2020-04-07 19:14 | NUR ---
Discharge Summary Patient: Gay Whitlock Admission date: 04/06/2020 Discharge date: 04/07/2020 Attending physician: Leonel Hamm MD Consultation: Dr José Miguel Leung, cardiology Dr Srini Jacob Admitting Diagnosis: acute congestive heart failure, thyrotoxicosis Discharge Diagnosis: acute diastolic congestive heart failure, thyrotoxicosis Procedures: None Hospital Course: Ms Whitlock is a 49 yo F with PMH of HTN who is admitted for acute heart failure. Patient was seen in Dr José Miguel Leung' clinic where he was concerned for new onset HF and sent her to ED. This was the first time she was seen in his clinic. She states she has been having symptoms of shortness of breath and lower extremity edema for several months and has been gradually worsening. She also complains of atypical chest discomfort. Never had heart cath, never had [place]. CXR in ED with bilateral pulmonary congestion and interstitial edema with enlarged cardiac silhouette. Labwork revealed BNP 1683. Started on lasix and admitted for further work-up. TTE performed and formal read pending, however per Dr Bill Leung, EF appeared normal so patient likely has diastolic congestive heart failure. Her edema and SOB improved with diuresis. Work-up demonstrated low TSH and high FT4, indicatin g thyrotoxicosis. I planned to perform thyroid US inpatient however patient wanted to pursue this workup outpatient so she was discharged and can follow up with Dr Jacob for further workup of her thyroid and with Dr Leung for further management of her CHF. Physical Exam: Vitals: Temp: 98.0 P: 71 BP: 143/77RR: 18 SpO2: 97% General Appearance: The patient is alert, oriented and in no acute distress. Appears euvolemic. Skin: Warm and hydrated without any rash. HEENT: Head is normocephalic, atraumatic. Nontender sinuses. Pupils are equal and reactive. The nares are patent. Oropharynx is moist and clear without lesions. Neck: Supple without lymphadenopathy. No JVD. Thyroid NV/[employer] Heart / Cardiovascular: Regular rate and rhythm. Normal S1 and S2 without S3/S4. No murmurs, rubs or gallops. Peripheral pulses symmetric +2. Respiratory / Chest: No crackles or wheezes are heard. Symmetric breath sounds. Preserved chest expansion. Abdomen: Soft, nontender, nondistended with good bowel sounds heard. No clinical organomegaly. Renal: There is no costovertebral angle tenderness. Extremities: Without cyanosis, clubbing or edema. Preserved ROM. Neurological: Gross nonfocal. Patient oriented x 3. Cranial nerves II - XII Grossly intact. DTRs +2. MS: 5/5 globally. Discharge medications: see medication reconciliation Discharge plan: Condition on discharge: good Activity: as tolerated Diet: cardiac diet Follow-up: follow up with Dr Leung (PCP) , Dr José Miguel Leung (cardiology) and Dr Jacob (endocrinology) Time spent on discharge: 45 minutes
== END 2020-04-07 11:50 | disposition home or self-care (01) | DRG 291 ==
LOC: ER 20:45 → ERHOLD 21:38 → MED/SURG 22:33
PROVIDERS: ADMIT Internal Medicine
DX: I11.0 Hypertensive heart disease with heart failure (principal); I50.31 Acute diastolic (congestive) heart failure; F41.9 Anxiety disorder, unspecified; R60.0 Localized edema; E05.90 Thyrotoxicosis, unspecified without thyrotoxic crisis or storm; R94.5 Abnormal results of liver function studies; R00.0 Tachycardia, unspecified; Z11.59 Encounter for screening for other viral diseases
CPT/HCPCS: 36415; 71045; 71260; 74177; 80053; 80061; 80307; 81001; 82550; 82553; 83605; 83735; 83880; 84100; 84439; 84443; 84480; 84484; 85025; 85379; 85610; 85730; 86376; 87040; 87086; 93005; 93306; 99284; J1940; J2543; Q9967